=== PATIENT | male | born 1935 | race Caucasian/White ===

== ENCOUNTER 2018-07-28 15:37 | Inpatient (IN) | payer OTHER ==
[~2018-07-28] VITALS: Ht 167.6 cm; Wt 53.5 kg
[2018-07-28] VITALS (25 sets, daily range): BP systolic 81–149; BP diastolic 32–110
[2018-07-28] MEDS: methylPREDNISolone SS 40 MG/ML VIAL IVP SCH (00:18)
--- NOTE | 2018-07-28 15:37 | NUR ---
PATIENT BIB ALS TO ER BED 5.
--- NOTE | 2018-07-28 15:38 | NUR ---
MELI DOMÍNGUEZ MADE AWARE OF PT STATUS.
[2018-07-28] MEDS ORDERED: NACL 0.9% 2,000 ML IV SCH ×2 (15:55→19:09)
[2018-07-28] MEDS ORDERED: methylPREDNISolone SS 125 MG/2 ML VIAL IVP ONE ×2 (15:55→16:20)
[2018-07-28] MEDS ORDERED: LORazepam 2 MG/ML VIAL IVP ONE (15:55)
[2018-07-28] MEDS ORDERED: MAG SULF 2000 MG/WATER PREMIX 50 ML IV ONE (15:55)
[2018-07-28] MEDS ORDERED: diphenhydrAMINE 50 MG/ML VIAL IVP ONE (15:55)
[2018-07-28] MEDS ORDERED: NACL 0.9% 1,000 ML IV ONE (15:55)
[2018-07-28] MEDS ORDERED: FAMOTIDINE 20 MG/2 ML VIAL IVP ONE (15:55)
--- NOTE | 2018-07-28 16:02 | NUR ---
DR. SEBASTIAN EVALUATING PATIENT AT BEDSIDE.
[2018-07-28] MEDS ORDERED: ADENOSINE 6 MG/2 ML VIAL IVP ONE ×2 (16:05→16:10)
--- NOTE | 2018-07-28 16:13 | NUR ---
PT CAME WITH CPAP. PUT ON BIPAP. SETTINGS AGREED BY MD CHARTED. BLOOD GAS DONE AND GIVEN TO MD. PT IS RESTLESS. MD AND RN AT BEDSIDE. WILL CONTINUE TO MONIOTR.
[2018-07-28] MEDS ORDERED: DILTIAZEM 25 MG/5 ML VIAL IVP ONE ×2 (16:15)
[2018-07-28] MEDS ORDERED: methylPREDNISolone SS 125 MG/2 ML VIAL ONE (16:31)
--- NOTE | 2018-07-28 16:38 | NUR ---
NEW MAG RATE 80 ML/HR PER
--- NOTE | 2018-07-28 16:45 | NUR ---
received report from jessie saldivar. pt does not open eyes, reposned to pain stimuli. unable to follow commands. on cpap, o2 sats 98%, respiration rate fast. bedside monitor shows st 120s. body warm to touch, multiple old brusies noted.
[2018-07-28 16:55] LABS: BASOPHILS % (AUTO) 0.3 % (0.0-2.0); EOSINOPHILS % (AUTO) 0.1 % (0.0-4.0); HEMATOCRIT 35.9 % (36-52); HEMOGLOBIN 11.5 g/dL (12.0-18.0); LYMPHOCYTES % (AUTO) 6.6 % (20.5-51.1); MEAN CORPUSCULAR HEMOGLOBIN 28 pg (27-31); MEAN CORPUSCULAR HGB CONC 32 g/dL (33-37); MEAN CORPUSCULAR VOLUME 86.4 fL (80-94); MONOCYTES # (AUTO) 2.9 K/uL (0.8-1.0); MONOCYTES % (AUTO) 18.7 % (1.7-9.3); NEUTROPHILS # (AUTO) 11.5 K/uL (1.8-7.7); NEUTROPHILS % (AUTO) 74.3 % (42.2-75.2); PLATELET COUNT (AUTO) 275 K/uL (140-450); RED BLOOD CELL COUNT(AUTO) 4.16 MIL/uL (4.20-6.10); WHITE BLOOD COUNT (AUTO) 15.4 K/uL (4.8-10.8)
[2018-07-28] MEDS ORDERED: CLINDAMYCIN 900 MG in DEXTROSE 5% 100 ML IV ONE (16:55)
[2018-07-28] MEDS ORDERED: LEVOFLOXACIN 500 MG/D5W PREMIX 100 ML IV ONE (16:55)
[2018-07-28 17:10] LABS: ALBUMIN 3.1 g/dL (3.4-5.0); ANION GAP 17.7 (8-16); ASPARTATE AMINOTRANSFERASE 23 U/L (15-37); CHLORIDE 107 mmol/L (98-107); CREATININE 1.3 mg/dL (0.7-1.3); GLUCOSE 137 mg/dL (74-106); MAGNESIUM 1.4 mg/dL (1.8-2.4); POTASSIUM 3.7 mmol/L (3.5-5.1); SODIUM SERUM 143 mmol/L (136-145); TOTAL BILIRUBIN 0.5 mg/dL (0.0-1.0); UREA NITROGEN, BLOOD 13 mg/dL (7-18)
--- NOTE | 2018-07-28 17:15 | NUR ---
dr. luevano made aware of bp 88/31. will reassess patient.patient stated 3liters nss total to be infused. ivan primary nurse made aware. patienttolerating bipap.
[2018-07-28] MEDS ORDERED: CLINDAMYCIN 900 MG/6 ML VIAL IV ONE (17:17)
--- NOTE | 2018-07-28 17:18 | NUR ---
HANGED THE THIRED L OF 0.9 NS ORDERED BY .
--- NOTE | 2018-07-28 17:20 | NUR ---
DR. SEBASTIAN TALKING TO FAMILY AT BEDSIDE
[2018-07-28 17:24] LABS: PROTHROMBIN TIME 12.1 secs (10.8-13.4)
--- NOTE | 2018-07-28 17:25 | NUR ---
PT'S TWO DAUGHTERAS ST BEDSIDE. 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
[2018-07-28 17:28] LABS: ACETONE, SERUM NEGATIVE (NEGATIVE)
--- NOTE | 2018-07-28 17:35 | NUR ---
CURRENT BP 96/39, HR 97, O2 SATS 100%, RR 24 . PT STILL UNRESPONSIVE TO VERBAL STIMULI AND LIGHT PAIN STIMULI. PT'S DAUGHTER AT BEDSIDE.
[2018-07-28 17:40] LABS: BILIRUBIN,URINE NEGATIVE (NEGATIVE); BLOOD, URINE 1+ (NEGATIVE); COLOR,URINE YELLOW (YELLOW); LEUKOCYTE ESTERASE ,URINE NEGATIVE (NEGATIVE); NITRITE, URINE NEGATIVE (NEGATIVE); UGLUCOSE NEGATIVE (NEGATIVE)
[2018-07-28 17:46] LABS: APPEARANCE,URINE HAZY (CLEAR); RBC,URINE 11-20 (MOD) /HPF (0-5); WBC,URINE 0-5 /HPF (0-5)
[2018-07-28] MEDS ORDERED: ACETAMINOPHEN 325 MG TAB PO PRN (18:30)
[2018-07-28] MEDS ORDERED: HYDROcodone/APAP 5/325 MG 1 TAB TAB PO PRN (18:30)
[2018-07-28] MEDS ORDERED: ONDANSETRON 4 MG/2 ML VIAL IVP PRN (18:30)
--- NOTE | 2018-07-28 18:50 | NUR ---
RECEIVED PT FROM TEACHING AIDE CAROL. PT IS AWAKE, LETHARGIC. DOES NOT RESPOND TO COMMANDS. TEMP 97.4, ZSO=574/37, RY=920, SATING 90%, RR=29. LUNG SOUNDS CLEAR, DIMINISHED ON RIGHT SIDE.RT AT BEDSIDE, PT ON NASAL CANNULA 9LPM/ BOWEL SOUND ACTIVE, SR ON HOUSEKEEPING SUPERVISOR HOTEL. RIVERA CATH IN PLACE, PLACED IN ED, MINIMAL URINE OUTPUT, URINE IS CLEAR/YELLOW. SKIN IS NON-INTACT, BRUISING ON BILATERAL ARMS. HOB ELEVATED ABOVE 30 DEG. STANDARD ISOLATION. PER TEACHING AIDE, PT IS LEGALLY BLIND IN BOTH EYES. FULL CODE, ALLERGIES TO PENICILLIN, SULFA METHOXAZOLE, AND TRIMETHOPRIM GIVE PER RN REPORT.
--- NOTE | 2018-07-28 18:55 | NUR ---
TRANSFRRED PT TO ICU BED 5 BY ANGELIA, PT IS MORE AWAKE AT THIS TIME. BP 100/37, O2 SATS 95%, HR 100. REPORT GIVEN TO DAMIEN LEIJA.
[2018-07-28] MEDS: NACL 0.9% 1,000 ML IV SCH (19:03)
[2018-07-28] MEDS ORDERED: NACL 0.9% 1,000 ML IV SCH (19:09)
[2018-07-28] MEDS: ALBUTEROL 0.083% 2.5 MG/3 ML NEBU IH PRN (19:21)
--- NOTE | 2018-07-28 19:25 | NUR ---
RT ABADI AT BEDSIDE PT STARTED ON BIPAP, 16/8, A1=140%. RR=12.
--- NOTE | 2018-07-28 19:47 | NUR ---
CALLED DR. RIDLEY, UPDATED ON PT CONDITION. GAVE TELEPHONE ORDER TO BOLUS 100ML NS AND START LEVOPHED.
[2018-07-28] MEDS ORDERED: NOREPINEPHRINE 4 MG/4 ML VIAL IV ONE (19:58)
[2018-07-28] MEDS: NOREPINEPHRINE 4 MG in DEXTROSE 5% 250 ML IV PRN (20:06)
--- NOTE | 2018-07-28 20:15 | NUR ---
PT DAUGHTER ABRAN AT BEDSIDE
--- NOTE | 2018-07-28 21:25 | NUR ---
BIPAP CHANGES MADE BY DR. RIDLEY-BIPAP +21/09 AND DECREASE FIO2 TO 70%. MAINTAIN SAO2 GREATER THAN 92%
--- NOTE | 2018-07-28 21:30 | NUR ---
SEEN AND EXAMINED BY KEYANA, WITH NEW ORDER TO INCREASE THE ON GOING IVF NORMAL SALINE FROM 100ML/HR TO 150 ML/HR; CARRIED OUT.
--- NOTE | 2018-07-28 21:35 | NUR ---
DR RIDLEY IN TO SEE PATIENT
--- NOTE | 2018-07-28 21:45 | NUR ---
PER DR. RIDLEY, OKAY TO GIVE ZOSYN EVEN PATIENT IS ALLERGIC TO PENICILLIN.
[2018-07-28] MEDS ORDERED: MAG SULF 2000 MG/WATER PREMIX 50 ML IV SCH (22:00)
[2018-07-28] MEDS ORDERED: AZITHROMYCIN 500 MG INJ VIAL IV ONE (22:15)
[2018-07-28] MEDS: AZITHROMYCIN 500 MG in DEXTROSE 5% 250 ML IV SCH (22:24)
--- NOTE | 2018-07-28 22:30 | NUR ---
JEFFERSON FROM [facility] CALLED UPDATED ON CONDITION, PHONE# [phone].
[2018-07-28] MEDS: LORazepam 2 MG/ML VIAL IVP PRN (23:21)
--- NOTE | 2018-07-28 23:27 | NUR ---
ATIVAN GIVEN, MILD AGITATION, RR= 34-38, HR = 111, BP 105/53
[2018-07-29] VITALS (54 sets, daily range): BP systolic 78–182; BP diastolic 43–77
[2018-07-29] MEDS: methylPREDNISolone SS 40 MG/ML VIAL IVP SCH ×5 (00:18→20:51)
--- NOTE | 2018-07-29 00:18 | NUR ---
CALLED PHARM REGARDING 2199 SOLUMEDROL NOT GIVEN, TO BE GIVEN NOW AT THIS TIME. LAB AT BEDSIDE TO COLLECT SAMPLE, PT MORE AGITATED AT THIS TIME DUE TO BLOOD DRAW. FAMILY AT BEDSIDE. ON LEVOPHED 8MCG/MIN BP 103/52, SATING 91%, RN=[id number], RR=36-38.
[2018-07-29] MEDS ORDERED: methylPREDNISolone SS 40 MG/ML VIAL ONE (00:31)
[2018-07-29 01:14] LABS: CREATINE KINASE MB 3.6 ng/mL (0-3.6)
--- NOTE | 2018-07-29 01:30 | NUR ---
DR. COATES CALLED TO EVALUATE PATIENT FOR INTUBATION AND SPEAK TO FAMILY. FAMILY AND DR. COATES AGREED TO TRY MORPHINE AND FENTANYL FIRST TO SLOW HIS RESPIRATIONS AND ABG TO FOLLOW. THEN WILL SEE IF PATIENT NEEDS INTUBATION
[2018-07-29] MEDS ORDERED: MORPHINE SULFATE 4 MG/ML SYR IVP STA (01:42)
[2018-07-29] MEDS: NACL 0.9% 1,000 ML IV SCH ×4 (02:03→22:11)
--- NOTE | 2018-07-29 02:13 | NUR ---
RT GEORGES AT BEDSIDE TO COLLECT ABG.
--- NOTE | 2018-07-29 02:36 | NUR ---
G COLLETTED AND RESULTS GIVEN TO DR. COATES, INCREASED FIO2 TO 80% AND DR. COATES STATED TO MONITOR PATIENT AND IF NEED, WILL INTUBATE. RR-27, HR 91, SAO2-96%
[2018-07-29] MEDS: NOREPINEPHRINE 4 MG in DEXTROSE 5% 250 ML IV PRN (03:10)
[2018-07-29] MEDS ORDERED: NOREPINEPHRINE 4 MG/4 ML VIAL IV ONE (03:12)
[2018-07-29] MEDS ORDERED: PIPERACILLIN/TAZOBACTAM 3.375 GM VIAL IV ONE (05:41)
[2018-07-29] MEDS: PIPER/TAZO 3.375GM/D5W PREMIX 50 ML IV SCH ×4 (06:16→23:59)
[2018-07-29] MEDS: PANTOPRAZOLE 40 MG INJ VIAL IVP SCH (06:18)
[2018-07-29 06:40] LABS: ALBUMIN 2.2 g/dL (3.4-5.0); ANION GAP 15.8 (8-16); ASPARTATE AMINOTRANSFERASE 25 U/L (15-37); CHLORIDE 110 mmol/L (98-107); CREATININE 1.3 mg/dL (0.7-1.3); GLUCOSE 165 mg/dL (74-106); MAGNESIUM 2.1 mg/dL (1.8-2.4); POTASSIUM 3.8 mmol/L (3.5-5.1); SODIUM SERUM 141 mmol/L (136-145); TOTAL BILIRUBIN 0.3 mg/dL (0.0-1.0); UREA NITROGEN, BLOOD 20 mg/dL (7-18)
--- NOTE | 2018-07-29 07:13 | NUR ---
RECEIVED BEDSIDE REPORT FROM SENIOR MEDIA BUYER RN, DAMIEN, FOR CONTINUITY OF CARE. PATIENT IS RESTLESS, ABLE TO FOLLOW SIMPLE COMMANDS AND MAKE SOME NEEDS KNOWN. PATIENT SKIN IS WARM, DRY, INTACT WITH BRUISING TO UPPER EXTREMITIES. HE HAS PERIPHERAL IV SITE TO MAHAMED AND RAC, 20 GAUGE, ASYMPTOMATIC AND PATENT. PATIENT IS AFEBRILE, ON BIPAP AT 60% FIO2, BREATHING IS LABORED AND EVEN. PATIENT IS TACHYCARDIC ON LEAD AUDITOR. PER SENIOR MEDIA BUYER RN, WILL ADMINISTER ATIVAN. PATIENT HAS RIVERA CATHETER IN PLACE TO CLEAR YELLOW URINE. SAFETY PRECAUTIONS AND ALARMS ASSESS AND ENFORCED, HOB IS SEMI-MCGREGOR. WILL CONTINUE TO MONITOR PATIENT.
[2018-07-29 07:22] LABS: HEMOGLOBIN 9.9 g/dL (12.0-18.0); MEAN CORPUSCULAR HEMOGLOBIN 27 pg (27-31); MEAN CORPUSCULAR HGB CONC 31 g/dL (33-37); MEAN CORPUSCULAR VOLUME 87.8 fL (80-94); PLATELET COUNT (AUTO) 228 K/uL (140-450); RED BLOOD CELL COUNT(AUTO) 3.64 MIL/uL (4.20-6.10); RED CELL DISTRIBUTION WIDTH 20.9 % (11.6-13.7)
[2018-07-29] MEDS: LORazepam 2 MG/ML VIAL IVP PRN ×2 (07:34→20:51)
[2018-07-29 07:36] LABS: LYMPHOCYTES % (MANUAL) 3 % (20-46); METAMYELOCYTES % 2 % (0-0); MONOCYTES % (MANUAL) 10 % (5-12)
--- NOTE | 2018-07-29 07:43 | NUR ---
PT RESTLESS. RN GIVEN ATIVAN AT BEDSIDE. RN PAGED MD FERRO WAITING FOR CALL BACK. AMBU BAG AT BEDSIDE. BIPAP CONNECTED TO RED OUTLET.ALARMS AUDIBLE WILL CONTINUE TO MONITOR.
--- NOTE | 2018-07-29 07:45 | NUR ---
CALLED DR. FERRO, UPDATED ON PATIENT'S CONDITION. RECEIVED ORDER FOR MORPHINE 2MG Q6H PRN.
--- NOTE | 2018-07-29 07:49 | NUR ---
PATIENT HAS BEEN SCREENED AND CATEGORIZED HIGH NUTRITION RISK. PATIENT WILL BE SEEN WITHIN 1-2 DAYS OF ADMISSION. 07/29/18-07/30/[address]
--- NOTE | 2018-07-29 08:19 | NUR ---
DR. FERRO IS HERE TO SEE AND EXAMINE PATIENT, UPDATED ON PATIENT'S CONDITION. WILL FOLLOW UP ON ANY ORDERS
[2018-07-29] MEDS: ENOXAPARIN 40 MG/0.4 ML SYR SUBQ SCH (09:17)
--- NOTE | 2018-07-29 09:50 | NUR ---
PATIENT IS OFF LEVOPHED DRIP, BP IS 119/56, NO SIGNS OF DISTRESS AT THIS TIME
--- NOTE | 2018-07-29 10:02 | NUR ---
BP IS 110/59, HR 98, SPO2 97, RR 26, DENIES ANY PAIN AT THIS TIME. DAUGHTER AT BEDSIDE. NO SIGNS OF ACUTE DISTRESS.
--- NOTE | 2018-07-29 10:04 | NUR ---
07/29/18 RD INITIAL ASSESSMENT COMPLETED PLEASE REFER TO NUTRITION ASSESSMENT UNDER CARE ACTIVITY FOR ESTIMATED NUTRITIONAL NEEDS. 1. RECOMMEND NPO 2. WHEN PATIENT BECOMES MEDICALLY STABLE CONSIDER ADVANCING DIET TO CARDIAC 3. IF PATIENT IS INTUBATED, CONSIDER ENTERAL NUTRITION 4. RD TO FOLLOW-UP 2-3 DAYS, HIGH RISK CRISTIAN CASEY RD
[2018-07-29 10:55] LABS: CREATINE KINASE MB 5.4 ng/mL (0-3.6)
--- NOTE | 2018-07-29 11:10 | NUR ---
PT DOING MUCH BETTER. CALM. FAMILY AT BEDSIDE. BIPAP OFF FOR PT'S COMFORT. PT IS AWAKE. RN AND FAMILY AT BEDSIDE. PER PT'S DAUGHTER TISHA TO GIVE PT BREAK FROM MASK IF TOLERATED. PT OFF BIPAP. PLACED ON 3 L NC. SPO2 92% HR 105 BP 120/55. NO DISTRESS NOTED. WILL CONTINUE TO MONITOR.
--- NOTE | 2018-07-29 11:19 | NUR ---
JARRETT COTTON AT BEDSIDE. REMOVED PATIENT'S PARTIAL UPPER DENTURES, PATIENT TOLERATED WELL. Addendum: 07/29/18 at 1743 by Glen Rodriguez RN PATIENT'S DENTURES ARE WITH PATIENT'S DAUGHTER
--- NOTE | 2018-07-29 11:28 | NUR ---
PATIENT IS OFF BIPAP, PLACED ON NASAL CANNULA 3LPM. SPO2 IS 91%
--- NOTE | 2018-07-29 13:01 | NUR ---
VSS AT THIS TIME, PATIENT'S FAMILY AT BEDSIDE.
--- NOTE | 2018-07-29 14:39 | NUR ---
DR. HATFIELD AT BEDSIDE TO EXAMINE PATIENT
[2018-07-29] MEDS: ALBUTEROL 0.083% 2.5 MG/3 ML NEBU IH PRN ×2 (18:44→23:16)
--- NOTE | 2018-07-29 19:05 | NUR ---
CONTINUITY OF CARE ENDORSED TO PULLER THROUGH RNKEVIN. NO SIGNS OF DISTRESS NOTED
--- NOTE | 2018-07-29 19:20 | NUR ---
BSSR RECEIVED FROM HELADIO TRIPATHI. PT COMFORTABLE, CONFUSED, ABLE TO FOLLOW COMMANDS. BREATHING NORMALLY ON NC AT 4L O2. SINUS TACH ON THE MONITOR. ABDOMEN SOFT AND NON TENDER TO TOUCH. RIVERA CATHETER INTACT AND DRAINING YELLOW CLEAR URINE. MULTIPLE DISCOLORATIONS TO BILATERAL ARMS. NO ACUTE DISTRESS AT THIS TIME, WILL CONTINUE TO MONITOR CLOSELY.
[2018-07-29] MEDS: AZITHROMYCIN 500 MG in DEXTROSE 5% 250 ML IV SCH (20:57)
[2018-07-29] MEDS: MORPHINE SULFATE 2 MG/ML SYR IVP PRN (21:23)
--- NOTE | 2018-07-29 21:30 | NUR ---
DATA: PT AGITATED AT 2044 ACTION:ATIVAN 2MG IVP GIVEN AT 2050 REASSESSMENT:INTERMITTENT AGITATION OBSERVED AT 2129
--- NOTE | 2018-07-29 22:00 | NUR ---
DATA: PAIN 7/10 (FLACC) AT 2114 ACTION:MORPHINE SULFATE 2MG IVP GIVEN AT 2122 REASSESSMENT:PT ASLEEP 0/10 PAIN AT THIS ( 2199) TIME
[2018-07-29] MEDS ORDERED: ACETYLCYSTEINE 10% (100 MG/ML) 100 MG/ML VIAL INH PRN (22:45)
--- NOTE | 2018-07-29 22:48 | NUR ---
PATIENT HAS AUDIBLE SECRETIONS AND CONGESTION. NTS PATIENT DOWN BOTH LEFT AND RIGHT NARES WITH NO INCIDENT. RECEIVED SMALL, WHITE, THIN SECRETIONS. DUE TO PATIENTS ALOC HE IS UNABLE TO FOLLOW COMMANDS TO COUGH WHEN SUCTIONED. ASKED RN TO CALL DOCTOR AND REQUEST MUCOMYST 20%.
--- NOTE | 2018-07-29 22:53 | NUR ---
PT HAS RONCHI AND NOT ABLE TO COUGH UP HIS SECRETION, CALLED DR. DASH, ORDER RECEIVED AND WILL FOLLOW IT. RT PERFORMED NASAL SUCTIONING WELL.
[2018-07-29] MEDS ORDERED: ACETYLCYSTEINE 20% (200 MG/ML) 200 MG/ML VIAL ONE (22:57)
--- NOTE | 2018-07-29 23:40 | NUR ---
PLACED PATIENT ONTO OXYMIZER AT 6L/M, WAS PREVIOUSLY ON NASAL CANNULA AT 4L/M BUT PT SATURATION MAINTAINED AT 89%.
[2018-07-30] VITALS (9 sets, daily range): BP systolic 101–150; BP diastolic 45–73
[2018-07-30] MEDS: LORazepam 2 MG/ML VIAL IVP PRN ×3 (01:43→20:25)
--- NOTE | 2018-07-30 02:03 | NUR ---
DATA: PT AGITATED AT 0135 ACTION:ATIVAN 2MG IVP GIVEN AT 0143 REASSESSMENT:PT ASLEEP AT THIS (0203)
--- NOTE | 2018-07-30 02:30 | NUR ---
PATIENT IS RESTLESS, TACHYAPNEIC WHENEVER HE'S AWAKE AND NOTEDD WITH CRACKLES HEARD ALL OVER THE CHEST; PAGE DR. DASH TO REFER THE PATIENT; PAGED 3X BUT HE DIDN'T ANSWER MY PAGE. CLOSE OBSERVATION OF PATIENT DONE.
[2018-07-30] MEDS ORDERED: ACETYLCYSTEINE 20% (200 MG/ML) 200 MG/ML VIAL ONE (03:22)
[2018-07-30] MEDS: ALBUTEROL 0.083% 2.5 MG/3 ML NEBU IH PRN ×4 (03:34→19:48)
--- NOTE | 2018-07-30 04:30 | NUR ---
STILL NO RETURNED CALL FROM DR. DASH SO PAGED DR. GREGORIO (POST ANESTHESIA NURSE FOR DR. ALEGRE) AND PAGED AGAIN DR. DASH TOO. THEY CALLED BACK SIMULTANEOUSLY AT 0625 HRS. AND GOT NEW ORDERS FROM DR. GREGORIO TO DICONTINUE THE ONGOING IV FLUID AND TO GIVE LASIX 20 MG IF X 1; CARRIED OUT
[2018-07-30] MEDS: NACL 0.9% 1,000 ML IV SCH (05:18)
[2018-07-30] MEDS: methylPREDNISolone SS 40 MG/ML VIAL IVP SCH ×3 (05:18→20:25)
[2018-07-30] MEDS: PIPER/TAZO 3.375GM/D5W PREMIX 50 ML IV SCH ×3 (05:18→18:46)
[2018-07-30] MEDS: PANTOPRAZOLE 40 MG INJ VIAL IVP SCH (05:34)
[2018-07-30 05:51] LABS: ALBUMIN 2.1 g/dL (3.4-5.0); ANION GAP 16.3 (8-16); ASPARTATE AMINOTRANSFERASE 29 U/L (15-37); CARBON DIOXIDE 18.4 mmol/L (21-32); CHLORIDE 112 mmol/L (98-107); CREATININE 1.1 mg/dL (0.7-1.3); GLUCOSE 128 mg/dL (74-106); POTASSIUM 3.7 mmol/L (3.5-5.1); SODIUM SERUM 143 mmol/L (136-145); TOTAL BILIRUBIN 0.3 mg/dL (0.0-1.0); UREA NITROGEN, BLOOD 23 mg/dL (7-18)
[2018-07-30] MEDS ORDERED: FUROSEMIDE 40 MG/4 ML VIAL IVP SCH (06:15)
[2018-07-30 06:26] LABS: HEMATOCRIT 24.7 % (36-52); HEMOGLOBIN 7.8 g/dL (12.0-18.0); MEAN CORPUSCULAR HEMOGLOBIN 27 pg (27-31); MEAN CORPUSCULAR HGB CONC 31 g/dL (33-37); MEAN CORPUSCULAR VOLUME 86.6 fL (80-94); PLATELET COUNT (AUTO) 118 K/uL (140-450); RED BLOOD CELL COUNT(AUTO) 2.85 MIL/uL (4.20-6.10)
[2018-07-30] MEDS ORDERED: FUROSEMIDE 40 MG/4 ML VIAL IVP ONE (06:27)
--- NOTE | 2018-07-30 07:30 | NUR ---
RECEIVED BEDSIDE REPORT FROM PIPE PRODUCTION WORKER RN. PT IS CONFUSED, DOES NOT FOLLOW COMMANDS AT THIS TIME. AFEBRILE. SINUS TACHY ON MONITOR. PT IS ON OXYMIZER AT 6 LPM. CRACKLES AUSCULTATED BILATERALLY. BREATHING EVEN, UNLABORED. ABDOMEN FLAT, SOFT, NONTENDER W/ ACTIVE BOWEL SOUNDS. SALINE LOCK G20 TO RIGHT WRIST PATENT, INTACT W/ GOOD BLOOD RETURN. SALINE FLUSHED. RIVERA CATH IN PLACE, DRAINING LIGHT NOEL TO GRAVITY. NO EDEMA NOTED. SKIN IS INTACT, DRY AND WARM TO TOUCH. PULSES PALPABLE TO ALL EXTREMITIES. HOB 30 DEGREES, BED IN LOWEST POSITION LOCKED, CALL LIGHT WITHIN REACH. ALL SAFETY PRECAUTIONS IN PLACE. WILL CONTINUE TO MONITOR.
[2018-07-30 07:36] LABS: WHITE BLOOD COUNT (AUTO) 31.5 K/uL (4.8-10.8)
[2018-07-30 07:37] LABS: LYMPHOCYTES % (MANUAL) 2 % (20-46); MONOCYTES % (MANUAL) 3 % (5-12)
[2018-07-30] MEDS: MORPHINE SULFATE 2 MG/ML SYR IVP PRN (07:41)
[2018-07-30] MEDS: ENOXAPARIN 40 MG/0.4 ML SYR SUBQ SCH (08:05)
--- NOTE | 2018-07-30 08:30 | NUR ---
MEDICATIONS ADMINISTERED ORDERED. PT TOLERATED WELL.
--- NOTE | 2018-07-30 09:10 | NUR ---
DAUGHTERS AT BEDSIDE. PT IS ANXIOUS AND RESTLESS, TRYING TO GET UP FROM BED. ATIVAN GIVEN ORDERED. WILL CONTINUE TO MONITOR.
--- NOTE | 2018-07-30 09:30 | NUR ---
PT SEEN BY DR. HATFIELD. WILL FOLLOW UP ON ORDERS. Addendum: 07/30/18 at 1332 by Jordana Daniels RN DR. HATFIELD AWARE OF HGB LEVEL OF 7.8.
--- NOTE | 2018-07-30 11:01 | NUR ---
PT IS CALM AND SLEEPING AT THIS TIME. DAUGHTER AT BEDSIDE. VSS. SAFETY PRECAUTIONS IN PLACE. WILL CONTINUE TO MONITOR.
--- NOTE | 2018-07-30 12:15 | NUR ---
SPEECH THERAPIST AT BEDSIDE, SWALLOW EVAL BEING DONE, WILL FOLLOW UP ON DIET RECOMMENDATION.
--- NOTE | 2018-07-30 12:29 | NUR ---
S.T. BEDSIDE SWALLOW EVAL COMPLETED See report for details. Pt presents with mild oropharyngeal dysphagia c/b prolonged oral prep, delayed pharyngeal swallow initiation and diffuse oral residue of puree after swallows. Pt able to clear most of residue w/ subsequent sips of thin liquid. Pt is at mod risk for aspiration. Recommend: 1) Advance to pureed diet, thin liquids okay. 2) P.O. meds crushed 3) 1:1 feeder w/ aspiration precautions 4) Advance to mechanical soft diet slowly only if family brings in upper denture from home. D/w pt, daughter and ICU nsg at bedside results/recommendations. No further tx indicated at this time. DC to nsg care. Time: [id number]
--- NOTE | 2018-07-30 13:11 | NUR ---
CHEST X-RAY BEING DONE AT BEDSIDE. PT'S VITAL SIGNS ARE STABLE. NO SIGNS OF DISTRESS NOTED.
[2018-07-30] MEDS ORDERED: ACETYLCYSTEINE 20% (200 MG/ML) 200 MG/ML VIAL INH PRN (13:43)
--- NOTE | 2018-07-30 15:22 | NUR ---
PT SEEN AND EXAMINED BY DR. FERRO. WILL FOLLOW UP ON ORDERS.
--- NOTE | 2018-07-30 15:25 | NUR ---
DR. FERRO MADE AWARE OF OCCASIONAL PAC'S AND PVC'S ON CITY DISTRIBUTION CLERK. NO NEW ORDER AT THIS TIME.
--- NOTE | 2018-07-30 17:45 | NUR ---
PT TRANSFERRED TO TELEMETRY ROOM 107A. REPORT GIVEN TO HELADIO WOODARD AT BEDSIDE, ENDORSED PENDING BLOOD TRANSFUSION. PT IS IN STABLE CONDITION. FAMILY AT BEDSIDE.
--- NOTE | 2018-07-30 17:46 | NUR ---
RECEIVED BEDSIDE REPORT FROM IAN WIRE BASKET MAKER. PATIENT ON TELE MONITOR AND STANDARD PRECAUTIONS IN PLACE. PATIENT CONFUSED, SKIN INTACT, PRESENCE OF BRUISES. ON 5 L O2 VIA OXIMIZER, NO DISTRESS NOTED. IV ON R WRIST 20 G INFUSING ZOSYN, TKO, IV ASYMPTOMATIC PATENT AND INTACT. FALL RISK PROTOCOL IN PLACE. BED IN LOW POSITION, CALL LIGHT WITHIN REACH, SIDE RAILS X2 UP. DAUGHTER AND AT BEDSIDE. WILL CONTINUE TO MONITOR.
--- NOTE | 2018-07-30 19:20 | NUR ---
BEDSIDE REPORT GIVEN TO HELADIO GARCIA. PATIENT ENDORSED IN STABLE CONDITION.
--- NOTE | 2018-07-30 19:30 | NUR ---
RECEIVED BEDSIDE REPORT FROM DAY SHIFT RN, PATIENT IN BED, ON 5 L VIA OXYMIZER, FAMILY AT BEDSIDE QUESTIONS ANSWERED. V/S TAKEN. FAMILY REQUESTED PATIENT BE MEDICATED WITH ATIVAN FOR ANXIETY. IV IN RIGHT WRIST 20 G DRESSING INTACT.
[2018-07-30] MEDS: AZITHROMYCIN 500 MG in DEXTROSE 5% 250 ML IV SCH (20:25)
--- NOTE | 2018-07-30 20:35 | NUR ---
DUE MEDICATIONS GIVEN, PATIENT LOOKS ANXIOUS MOVING IN BED, TRYING TO GET OUT, MEDICATED WITH ATIVAN FOR ANXIETY.
--- NOTE | 2018-07-30 23:45 | NUR ---
CHARGE NURSE NICHOLAS ASKED TO CALL RT FOR BREATHING TREATMENT. CALLED RT, BETTINA ON HIS WAY
[2018-07-31] VITALS: BP 112/60
--- NOTE | 2018-07-31 | NUR ---
V/S TAKEN WILL CONTINUE TO MONITOR.
[2018-07-31] MEDS: PIPER/TAZO 3.375GM/D5W PREMIX 50 ML IV SCH ×5 (00:59→23:46)
--- NOTE | 2018-07-31 03:17 | NUR ---
ASLEEP RESTING COMFORTABLE GOOD CHEST RISE NO SOB NOTED
[2018-07-31 04:00] VITALS: BP 135/75
--- NOTE | 2018-07-31 04:00 | NUR ---
PATIENT RESTING IN BED, V/S TAKEN WILL CONTINUE TO MONITOR.
--- NOTE | 2018-07-31 05:12 | NUR ---
RECRUITING AND SELECTION CONSULTANT CALLED TO BEDSIDE TO ASSESS FOR SOB PATIENT PRESENTING WITH INCREASED AGITATION AND ANXIETY FAMILY AT BEDSIDE REQUESTING HHN PRN THERAPY EXPLAINED TO FAMILY THAT A HHN THERAY WILL NOT DECREASE THE PATIENTS STATE OF AGITATION AND ANXIETY POST THERAPY PATIENT REMAINS WITH THE SAME FOREMENTIONED STATUS
[2018-07-31] MEDS: ALBUTEROL 0.083% 2.5 MG/3 ML NEBU IH PRN ×2 (05:17→19:33)
[2018-07-31] MEDS: LORazepam 2 MG/ML VIAL IVP PRN ×3 (05:29→20:49)
[2018-07-31] MEDS: methylPREDNISolone SS 40 MG/ML VIAL IVP SCH (05:29)
[2018-07-31] MEDS: PANTOPRAZOLE 40 MG INJ VIAL IVP SCH (05:30)
--- NOTE | 2018-07-31 05:45 | NUR ---
PATIENT LOOKS ANXIOUS GAVE ATIVAN
--- NOTE | 2018-07-31 06:33 | NUR ---
STARTED BLOOD WITH HELADIO HANNAH V/Kristy STABLE
[2018-07-31 07:14] LABS: BASOPHILS # (AUTO) 0.2 K/uL (0.00-0.22); BASOPHILS % (AUTO) 0.6 % (0.0-2.0); HEMATOCRIT 26.5 % (36-52); HEMOGLOBIN 8.7 g/dL (12.0-18.0); LYMPHOCYTES # (AUTO) 0.3 K/uL (2.0-11.5); LYMPHOCYTES % (AUTO) 1.1 % (20.5-51.1); MEAN CORPUSCULAR HEMOGLOBIN 28 pg (27-31); MEAN CORPUSCULAR HGB CONC 33 g/dL (33-37); MEAN CORPUSCULAR VOLUME 85.7 fL (80-94); MONOCYTES # (AUTO) 0.9 K/uL (0.8-1.0); MONOCYTES % (AUTO) 3.7 % (1.7-9.3); NEUTROPHILS # (AUTO) 23.2 K/uL (1.8-7.7); NEUTROPHILS % (AUTO) 94.6 % (42.2-75.2); PLATELET COUNT (AUTO) 119 K/uL (140-450); RED CELL DISTRIBUTION WIDTH 21.3 % (11.6-13.7); WHITE BLOOD COUNT (AUTO) 24.6 K/uL (4.8-10.8)
--- NOTE | 2018-07-31 07:28 | NUR ---
ENDORSED PATIENT TO DAY SHIFT NURSE, BLOOD STILL INFUSING, V/S STABLE.
--- NOTE | 2018-07-31 07:30 | NUR ---
GOT BEDSIDE REPORT FROM HELADIO GARCIA. PATIENT ON TELE MONITOR AND STANDARD PRECAUTIONS IN PLACE. BLOOD INFUSING AT THIS TIME. PATIENT SLEEPING AND IV SITE ASYMPTOMATIC, PATENT AND INTACT. PATIENT APHASIC. SKIN INTACT. FALL RISK PROTOCOL IN PLACE. OXIMIZER AT 5 LPM, WITH NO DISTRESS NOTED. IV ON R WRIST 20 G INFUSING 1 UNIT PRBC. PATIENT CALM AND SLEEPING. DAUGHTER AT BEDSIDE. BED IN LOW POSITION, CALL LIGHT WITHIN REACH, SIDE RAILS X 2 UP. WILL CONTINUE TO MONITOR. Addendum: 07/31/18 at 0846 by Silvina Munoz RN RIVERA CATHETER IN PLACE, INSERTED ON 07/28/18.
[2018-07-31 07:43] LABS: ANION GAP 14.2 (8-16); CARBON DIOXIDE 24.4 mmol/L (21-32); CHLORIDE 111 mmol/L (98-107); CREATININE 0.9 mg/dL (0.7-1.3); GLUCOSE 129 mg/dL (74-106); SODIUM SERUM 147 mmol/L (136-145); UREA NITROGEN, BLOOD 24 mg/dL (7-18)
[2018-07-31 07:45] LABS: POTASSIUM 2.6 mmol/L (3.5-5.1)
[2018-07-31 08:00] VITALS: BP 145/69
[2018-07-31] MEDS: ENOXAPARIN 40 MG/0.4 ML SYR SUBQ SCH (09:00)
[2018-07-31] MEDS: KCL 20 MEQ/WATER INJ PREMIX 100 ML IV SCH ×2 (09:00→16:52)
--- NOTE | 2018-07-31 10:04 | NUR ---
BLOOD TRANSFUSION COMPLETE. PATIENT VITALS STABLE BP 128/60, HR 95, OS 95%, RR 18, AND T 97.7. WILL CONTINUE TO MONITOR.
[2018-07-31 12:00] VITALS: BP 120/88
--- NOTE | 2018-07-31 12:48 | NUR ---
RD RECOMMENDATIONS: 1. RECOMMEND CONTINUE WITH PUREED DIET PER ST RECOMMENDATIONS. 2.MECHANICAL SOFT DIET IF FAMILY BRINGS DENTURES FROM HOME PER ST RECOMMENDATIONS. 3. IF PO INTAKE <75%, RECOMEMND ADDING ONS. 4.RD WILL F/U 3-5 DAYS; MODERATE RISK. BRENNAN MARC RD
--- NOTE | 2018-07-31 13:00 | NUR ---
FAMILY AT BEDSIDE. PATIENT ON 2.5 LPM OXIMIZER, NO DISTRESS NOTED. WILL CONTINUE TO MONITOR.
[2018-07-31 16:00] VITALS: BP 150/91
--- NOTE | 2018-07-31 16:05 | NUR ---
PATIENT SLEEPING. NO COMPLAINTS AT THIS TIME. WILL CONTINUE TO MONITOR.
--- NOTE | 2018-07-31 19:05 | NUR ---
GAVE BEDSIDE REPORT TO HELADIO GARCIA. PATIENT ENDORSED IN STABLE CONDITION.
--- NOTE | 2018-07-31 19:30 | NUR ---
RECEIVED BEDSIDE REPORT FROM DAY SHIFT RN, PATIENT IN BED, V/S TAKEN ON 3 L VIA OXYMIZER, O2 SAT 89% CALLED RT SPOKE WITH SARMAD SHE STATED THAT IS OKAY FOR THIS PATIENT. FAMILY AT BEDSIDE QUESTIONS ANSWERED. FAMILY REQUESTED PATIENT BE MEDICATED WITH ATIVAN FOR ANXIETY. IV IN RIGHT WRIST 24 G DRESSING INTACT.
[2018-07-31] MEDS: ACETYLCYSTEINE 10% (100 MG/ML) 100 MG/ML VIAL INH PRN (19:33)
[2018-07-31 20:00] VITALS: BP 155/70
[2018-07-31] MEDS: AZITHROMYCIN 500 MG in DEXTROSE 5% 250 ML IV SCH (20:49)
--- NOTE | 2018-07-31 20:49 | NUR ---
PATIENT LOOKS ANXIOUS GAVE ATIVAN.
--- NOTE | 2018-07-31 22:45 | NUR ---
PATIENT HAS CRACKLES LOOKS ANXIOUS O2SAT 90% ON 3 L VIA OXYMIZER. CALLED RT SPOKE WITH SARMAD. TOLD ITS TOO EARLY FOR PATIENT TO HAVE BREATHING TX. EXPLAINED TO FAMILY, PLACED HOB UP. REPOSITIONED FOR COMFORT. WILL CONTINUE TO MONITOR.
--- NOTE | 2018-07-31 23:53 | NUR ---
DUE ZOSYN GIVEN, EDUCATION PROVIDED TO FAMILY.
[2018-08-01] VITALS: BP 130/80
--- NOTE | 2018-08-01 02:45 | NUR ---
PATIENT HAS NOTED CRACKLES AND SECRETIONS. CALLED RT FOR BREATHING TREATMENT.
[2018-08-01] MEDS: ALBUTEROL 0.083% 2.5 MG/3 ML NEBU IH PRN ×4 (02:50→18:42)
[2018-08-01 04:00] VITALS: BP 135/40
--- NOTE | 2018-08-01 05:00 | NUR ---
DUE MEDICATIONS GIVEN WILL CONTINUE TO MONITOR
[2018-08-01] MEDS: PIPER/TAZO 3.375GM/D5W PREMIX 50 ML IV SCH ×3 (05:56→17:45)
[2018-08-01] MEDS: PANTOPRAZOLE 40 MG INJ VIAL IVP SCH (05:56)
[2018-08-01 07:27] LABS: BASOPHILS # (AUTO) 0.1 K/uL (0.00-0.22); BASOPHILS % (AUTO) 0.4 % (0.0-2.0); EOSINOPHILS % (AUTO) 0.1 % (0.0-4.0); HEMATOCRIT 29.9 % (36-52); HEMOGLOBIN 9.8 g/dL (12.0-18.0); LYMPHOCYTES # (AUTO) 0.3 K/uL (2.0-11.5); LYMPHOCYTES % (AUTO) 1.5 % (20.5-51.1); MEAN CORPUSCULAR HEMOGLOBIN 28 pg (27-31); MEAN CORPUSCULAR HGB CONC 33 g/dL (33-37); MEAN CORPUSCULAR VOLUME 85.8 fL (80-94); MONOCYTES # (AUTO) 0.6 K/uL (0.8-1.0); MONOCYTES % (AUTO) 3.6 % (1.7-9.3); NEUTROPHILS # (AUTO) 16.9 K/uL (1.8-7.7); NEUTROPHILS % (AUTO) 94.4 % (42.2-75.2); PLATELET COUNT (AUTO) 115 K/uL (140-450); RED BLOOD CELL COUNT(AUTO) 3.48 MIL/uL (4.20-6.10); RED CELL DISTRIBUTION WIDTH 19.6 % (11.6-13.7); WHITE BLOOD COUNT (AUTO) 17.9 K/uL (4.8-10.8)
--- NOTE | 2018-08-01 07:38 | NUR ---
ENDORSED PATIENT TO DAY SHIFT NURSE PATIENT STABLE
[2018-08-01 07:55] LABS: PROTHROMBIN TIME 12.1 secs (10.8-13.4)
[2018-08-01 08:00] VITALS: BP 132/73
[2018-08-01 08:38] LABS: ALBUMIN 2.2 g/dL (3.4-5.0); ASPARTATE AMINOTRANSFERASE 27 U/L (15-37); CARBON DIOXIDE 23.6 mmol/L (21-32); CREATININE 0.7 mg/dL (0.7-1.3); GLUCOSE 113 mg/dL (74-106); TOTAL BILIRUBIN 0.7 mg/dL (0.0-1.0); UREA NITROGEN, BLOOD 22 mg/dL (7-18)
[2018-08-01] MEDS: ENOXAPARIN 40 MG/0.4 ML SYR SUBQ SCH (09:00)
[2018-08-01 09:03] LABS: ANION GAP 15.3 (8-16); CHLORIDE 111 mmol/L (98-107); SODIUM SERUM 147 mmol/L (136-145)
[2018-08-01] MEDS: ACETYLCYSTEINE 10% (100 MG/ML) 100 MG/ML VIAL INH PRN ×2 (09:08→18:42)
[2018-08-01 09:14] LABS: POTASSIUM 2.9 mmol/L (3.5-5.1)
[2018-08-01 09:18] LABS: MAGNESIUM 1.7 mg/dL (1.8-2.4); THYROID STIMULATING HORMONE 0.64 uIU/mL (0.34-3.74)
--- NOTE | 2018-08-01 09:54 | NUR ---
RECEIVED PATIENT ON 3L OXYMIZER, PULSE OX SAT 94%. BREATH SOUNDS RHONCHI. PATIENT EXPERIENCING DIFFICULTY CLEARING SECRETIONS. FAMILY AT BEDSIDE. FAMILY AGREED TO PLAN OF BREATHING TREATMENT FOLLOWED WITH NASOTRACHEAL SUCTIONING. PRN BREATHING TX ADMINISTERED. TOLERATED TX WELL, NO ADVERSE SIDE EFFECTS. NASOTRACHEAL SUCTIONED PATIENT WITHOUT INCIDENT. RN AT BEDSIDE TO ASSIST. SUCTIONED SMALL AMOUNT OF THICK, YELLOW BLOOD TINGED SECRETIONS. PLACED PATIENT BACK ON 3L OXYMIZER. DR. FERRO AT BEDSIDE. PLACED PATIENT ON 2L NC. NO ACUTE DISTRESS NOTED AT THIS TIME. WILL CONTINUE TO MONITOR.
[2018-08-01] MEDS ORDERED: POTASSIUM CHLORIDE 40 MEQ, LIDOCAINE 1% 25 MG in NACL 0.9% 250 ML IV SCH (11:30)
[2018-08-01 12:00] VITALS: BP 150/66
[2018-08-01] MEDS ORDERED: MAG SULF 2000 MG/WATER PREMIX 50 ML IV SCH (15:30)
[2018-08-01 16:00] VITALS: BP 146/75
--- NOTE | 2018-08-01 17:23 | NUR ---
PATIENT ON 2L NC, PULSE OX SAT 95%. FAMILY AT BEDSIDE. PRN BREATHING TX ADMINISTERED DUE TO WHEEZING. TOLERATED TX WELL, NO ADVERSE SIDE EFFECTS. PLACED PATIENT BACK ON 2L NC. WILL CONTINUE TO MONITOR.
[2018-08-01] MEDS ORDERED: CLOP75TA26 PO (18:58)
[2018-08-01] MEDS ORDERED: MIRT15TA PO (18:58)
[2018-08-01] MEDS ORDERED: [UNRECOGNIZED DRUG - CODE] PO (18:58)
[2018-08-01] MEDS ORDERED: [UNRECOGNIZED DRUG - CODE] PO (18:58)
[2018-08-01] MEDS ORDERED: ASPI-1718 PO (18:58)
[2018-08-01] MEDS ORDERED: HYOS-77 SL (18:58)
[2018-08-01] MEDS ORDERED: FLOR250 PO (18:58)
[2018-08-01] MEDS ORDERED: DILT-135 PO (18:58)
[2018-08-01] MEDS ORDERED: FERR324T11 PO (18:58)
[2018-08-01] MEDS ORDERED: ALBU0.0912 IH (18:58)
[2018-08-01] MEDS ORDERED: SPIMDI INH (18:58)
[2018-08-01] MEDS ORDERED: LOVA10TA2 PO (18:58)
[2018-08-01] MEDS ORDERED: FLUO10CA21 PO (18:58)
[2018-08-01] MEDS ORDERED: ATI.5 PO ×2 (18:58)
[2018-08-01] MEDS ORDERED: MELA5TAB6 PO (18:58)
[2018-08-01] MEDS ORDERED: FLUT1DSK4 IH (18:58)
[2018-08-01] MEDS ORDERED: BISA-246 RC (18:58)
[2018-08-01] MEDS ORDERED: TYL650S RC (19:00)
--- NOTE | 2018-08-01 19:26 | NUR ---
GAVE REPORT TO CIGAR TOBACCO REHANDLER NURSE FOR CONTINUITY OF CARE. PATIENT IN STABLE CONDITION.
--- NOTE | 2018-08-01 19:27 | NUR ---
RECEIVED REPORT FROM DAY SHIFT RN MICHAEL FOR CONTINUITY OF CARE. PT IS A/OX1 [place]ER SPEAKING, ON 2L O2 VIA NASAL CANNULA. PT ABLE TO MAKE SOME NEEDS KNOWN, AND ABLE TO FOLLOW SOME COMMANDS. PT BEDBOUND WITH FALL PRECAUTIONS IN PLACE. SKIN IS INTACT. PT HAS A 24G IV TO LEFT WRIST/FOREARM, ASYMPTOMATIC AND INTACT. DISCUSSED PLAN OF CARE WITH PT, PT NEEDS REINFORCEMENT. VITAL SIGNS WITHIN NORMAL LIMITS. PT STABLE, DENIES PAIN, NO SIGNS OF DISTRESS NOTED AT THIS TIME. PT POSITIONED FOR COMFORT. BED IN LOWEST POSITION, BED ALARM ON. WILL CONTINUE TO MONITOR.
[2018-08-01 20:00] VITALS: BP 155/86
[2018-08-01] MEDS: AZITHROMYCIN 500 MG in DEXTROSE 5% 250 ML IV SCH (20:52)
--- NOTE | 2018-08-01 21:00 | NUR ---
STARTED 2100 IV ABX INFUSION, PT TOLERATING WELL. WILL CALL PHARMACY TO MAKE MAGNESIUM AVAILABLE AGAIN.
--- NOTE | 2018-08-01 22:15 | NUR ---
PT PULLED OUT IV, WILL START NEW IV.
[2018-08-01] MEDS: HALOPERIDOL IM 5 MG/ML VIAL IM PRN (23:29)
--- NOTE | 2018-08-01 23:30 | NUR ---
PT AGITATED, ADMINISTERED HALDOL PER ORDER, PT TOLERATED WELL.
[2018-08-02] VITALS: BP 142/73
--- NOTE | 2018-08-02 | NUR ---
VITAL SIGNS WITHIN NORMAL LIMITS. PT STABLE, DENIES PAIN, NO SIGNS OF DISTRESS NOTED AT THIS TIME. PT POSITIONED FOR COMFORT. BED IN LOWEST POSITION, BED ALARM ON. WILL CONTINUE TO MONITOR.
[2018-08-02] MEDS: ALBUTEROL 0.083% 2.5 MG/3 ML NEBU IH PRN ×3 (00:16→14:05)
--- NOTE | 2018-08-02 00:25 | NUR ---
ATTEMPTED TO START NEW IV, BUT UNABLE TO. ASKED CHARGE NURSE TO TRY WHEN SHE IS AVAILABLE. CHARGE NURSE ABLE TO START NEW 22G IV TO LEFT HAND. ASKED PHARMACY TO RENEW MAG-RIDER, PHARMACY SAID THEY WERE UNABLE TO AND WOULD NEED NEW MD ORDER.
[2018-08-02] MEDS ORDERED: LORazepam 2 MG/ML VIAL IM/IVP SCH (00:30)
--- NOTE | 2018-08-02 00:45 | NUR ---
PT AGITATED AGAIN, TAKING VERY LABORED AND SHALLOW BREATHS, SATURATING AT 97% BUT HEART RATE BETWEEN 140-180. CALLED RT AND RT GAVE BREATHING TREATMENT BUT PT IS STILL VERY AGITATED. CALLED CUSTOMER EXPERIENCE ANALYST DR. SANDEEP VALLECILLO, HE ORDERED 0.5MG ATIVAN, CHEST XRAY, AND BLOOD GAS.
[2018-08-02] MEDS: PIPER/TAZO 3.375GM/D5W PREMIX 50 ML IV SCH ×3 (01:01→11:23)
--- NOTE | 2018-08-02 01:30 | NUR ---
PT STABLE NOW, RESTING CALMLY. NO SIGNS OF DISTRESS NOTED AT THIS TIME. PT POSITIONED FOR COMFORT. BED IN LOWEST POSITION, BED ALARM ON. WILL CONTINUE TO MONITOR.
[2018-08-02 04:00] VITALS: BP 116/68
[2018-08-02] MEDS ORDERED: MAG SULF 2000 MG/WATER PREMIX 50 ML IV SCH (04:15)
[2018-08-02] MEDS: PANTOPRAZOLE 40 MG INJ VIAL IVP SCH (05:48)
--- NOTE | 2018-08-02 05:50 | NUR ---
ADMINISTERED SCHEDULED MEDICATIONS, PT TOLERATED WELL.
--- NOTE | 2018-08-02 06:45 | NUR ---
PAGED HAM PUMPER MD AGAIN FOR DIFFERENT TYPE OF INSULIN.
--- NOTE | 2018-08-02 07:15 | NUR ---
WILL GIVE 10 UNITS OF HUMALOG NOW, AND ENDORSE THE REST TO DAY SHIFT HELADIO HAIDER
--- NOTE | 2018-08-02 07:25 | NUR ---
ENDORSED PT TO DAY SHIFT HELADIO RODRIGUEZ FOR CONTINUITY OF CARE. PT IN STABLE CONDITION.
--- NOTE | 2018-08-02 07:26 | NUR ---
RECEIVED REPORT FROM ONLINE PROJECT MANAGER NURSE. PATIENT LYING DOWN IN BED SLEEPING, AROUSABLE BY VOICE. NO DISTRESS NOTED. FAMILY MEMBER AT BEDSIDE. RESPIRATIONS EVEN, UNLABORED, ON O2 3L/MIN VIA OXIMIZER. SKIN INTACT. IV SITE INTACT, PATENT, AND INFUSING IVF PER MD ORDERS. LUNGS WHEEZING UPON EXPIRATION. RIVERA CATHETER IN PLACE, DRAINING DARK NOEL URINE. REVIEWED PLAN OF CARE WITH PATIENT. PATIENT VERBALIZED UNDERSTANDING. SAFETY MEASURES IN PLACE, CALL LIGHT WITHIN REACH. WILL CONTINUE TO MONITOR.
[2018-08-02 07:37] LABS: EOSINOPHILS % (AUTO) 0.1 % (0.0-4.0); HEMATOCRIT 32.3 % (36-52); HEMOGLOBIN 10.5 g/dL (12.0-18.0); LYMPHOCYTES # (AUTO) 0.5 K/uL (2.0-11.5); LYMPHOCYTES % (AUTO) 3.8 % (20.5-51.1); MEAN CORPUSCULAR HEMOGLOBIN 28 pg (27-31); MEAN CORPUSCULAR HGB CONC 32 g/dL (33-37); MEAN CORPUSCULAR VOLUME 85.4 fL (80-94); MONOCYTES # (AUTO) 1.4 K/uL (0.8-1.0); MONOCYTES % (AUTO) 11.1 % (1.7-9.3); NEUTROPHILS # (AUTO) 10.7 K/uL (1.8-7.7); PLATELET COUNT (AUTO) 113 K/uL (140-450); RED BLOOD CELL COUNT(AUTO) 3.79 MIL/uL (4.20-6.10); RED CELL DISTRIBUTION WIDTH 19.5 % (11.6-13.7); WHITE BLOOD COUNT (AUTO) 12.6 K/uL (4.8-10.8)
[2018-08-02 08:00] VITALS: BP 118/72
[2018-08-02 08:09] LABS: ALBUMIN 2.2 g/dL (3.4-5.0); ASPARTATE AMINOTRANSFERASE 29 U/L (15-37); CHLORIDE 111 mmol/L (98-107); CREATININE 0.8 mg/dL (0.7-1.3); GLUCOSE 104 mg/dL (74-106); SODIUM SERUM 147 mmol/L (136-145); TOTAL BILIRUBIN 0.8 mg/dL (0.0-1.0); UREA NITROGEN, BLOOD 17 mg/dL (7-18)
[2018-08-02 08:11] LABS: PROTHROMBIN TIME 12.3 secs (10.8-13.4)
[2018-08-02] MEDS ORDERED: POTASSIUM CHL 40 MEQ/ D5-1/2NS 1,000 ML IV SCH (09:00)
[2018-08-02] MEDS: ENOXAPARIN 40 MG/0.4 ML SYR SUBQ SCH (09:00)
--- NOTE | 2018-08-02 09:00 | NUR ---
ASSISTED AIR SEALING TECHNICIAN IN CLEANING AND REPOSITIONING PATIENT. WILL CONTINUE TO MONITOR.
[2018-08-02] MEDS ORDERED: POTASSIUM CHLORIDE 40 MEQ, LIDOCAINE MPF 1% - 5 mL VIAL 25 MG in NACL 0.9% 250 ML IV SCH (10:00)
--- NOTE | 2018-08-02 10:52 | NUR ---
CM NOTE RECEIVED ORDER TO CONTINUE ON [facility] ON DISCHARGE. FAXED ORDER TO [facility] [phone]. SPOKE WITH PATIENT'S DAUGHTER JESSICA PH# [phone] WHO SAID THAT THE FAMILY IS AWARE OF THE ORDER FOR HOME WITH HOSPICE AND THE FAMILY IS AGREEABLE AND WANTS TO CONTINUE WITH [facility]. PER CM CONSTANTINE OF [facility] (COVERING FOR CM JELENA) PH# [phone], PATIENT WAS PREVIOUSLY WITH [facility] AND TO GO AHEAD AND LET [facility] KNOW. SPOKE WITH MITALI OF [facility] PH# [phone] TO INFORM HER OF THE ORDER TO CONTINUE WITH HOSPICE AND OF DISCHARGE TODAY. PER MITALI, SHE WILL SEND SOMEONE TO EVALUATE THE PATIENT AT THE HOSPITAL TODAY. CHARGE NURSE YAHAIRA FLORENCE.
--- NOTE | 2018-08-02 11:27 | NUR ---
PATIENT LYING DOWN IN BED SLEEPING, AROUSABLE BY VOICE. DAUGHTER AT BEDSIDE. NO DISTRESS NOTED. SCHEDULED MEDICATIONS DUE GIVEN. WILL CONTINUE TO MONITOR.
[2018-08-02 12:00] VITALS: BP 124/73
--- NOTE | 2018-08-02 14:35 | NUR ---
CM NOTE SORAYA GABRIEL FROM [facility] # [phone] CAME TO EVALUATE THE PATIENT AND SPEAK WITH ONE OF THE PATIENT'S DAUGHTERS BEDSIDE. PER SORAYA, THE PATIENT IS COMING ON TO [facility] TODAY AND HE WILL SET UP THE TRANSPORTATION TO GO HOME TODAY. I GAVE SORAYA THE NUMBER TO THE NURSING STATION TO CONFIRM WITH THE NURSE THE STRUCTURAL STEEL WORKER TIME. CHARGE NURSE YAHAIRA FLORENCE.
--- NOTE | 2018-08-02 15:00 | NUR ---
DISCHARGE INSTRUCTIONS AND MEDICATION RECONCILIATION PROVIDED TO HOSPICE SURGICAL NURSE ON BEDSIDE UNIT. PATIENT/FAMILY VERBALIZED UNDERSTANDING. WILL CONTINUE TO MONITOR.
[2018-08-02 16:00] VITALS: BP 132/74
--- NOTE | 2018-08-02 18:00 | NUR ---
DISCHARGE INSTRUCTIONS PROVIDED TO PATIENT/FAMILY AT BEDSIDE IN PREFERRED LANGUAGE OF [place]. PATIENT PREFERS DAUGHTER AT BEDSIDE TO TRANSLATE INSTEAD OF USING [employer]ER PHONE. ANSWERED ALL OF PATIENT/FAMILY QUESTIONS REGARDING D/C TO HOME WITH [facility]. AWAITING FOR TRANSPORT BY HOSPICE COMPANY TO ARRIVE AT 1800 TO TAKE PATIENT HOME. WILL CONTINUE TO MONITOR.
--- NOTE | 2018-08-02 19:40 | NUR ---
GAVE REPORT TO VACUUM SPINDLE SANDER NURSE FOR CONTINUITY OF CARE. PATIENT IN STABLE CONDITION.
--- NOTE | 2018-08-02 19:53 | NUR ---
RECEIVED REPORT FROM MICHAEL LEIJA DAYSHIFT NURSE AT BEDSIDE FOR CONTINUITY OF CARE,PT IN STABLE CONDITION. PT READY FOR DISCHARGE, DAUGHTER AT BEDSIDE.
--- NOTE | 2018-08-02 20:39 | NUR ---
GAVE REPORT TO ELVIRA LEIJA SENIOR UI UX DESIGNER NURSE FOR CHANGE OF ASSIGNMENT.
[2018-08-02] MEDS: HALOPERIDOL IM 5 MG/ML VIAL IM PRN (21:00)
--- NOTE | 2018-08-02 21:05 | NUR ---
PATIENT PICK-UP BY [facility] ACCOMPANIED BY DAUGHTER. REMOVED IV ACCESS. PERSONAL BELONGINGS WITH DAUGHTER. DISCHARGES INSTRUCTION GIVEN. PATIENT LEFT IN STABLE CONDITION.
== END 2018-08-02 21:05 | disposition hospice, home (50) | DRG 871 ==
LOC: MED 15:37 → MIC 18:25 → MTU 07-30 17:50
PROVIDERS: ADMIT Hospitalist; ATTEND Hospitalist
PROC: 5A09357 Assistance with Respiratory Ventilation, Less than 24 Consecutive Hours, Continuous Positive Airway Pressure (ICD-10-PCS; 2018-07-28)
PROC: 30233N1 Transfusion of Nonautologous Red Blood Cells into Peripheral Vein, Percutaneous Approach (ICD-10-PCS; principal; 2018-07-31)
DX: A41.9 Sepsis, unspecified organism (principal); J69.0 Pneumonitis due to inhalation of food and vomit; R65.21 Severe sepsis with septic shock; G93.41 Metabolic encephalopathy; J96.21 Acute and chronic respiratory failure with hypoxia; J15.9 Unspecified bacterial pneumonia; J44.0 Chronic obstructive pulmonary disease with (acute) lower respiratory infection; E83.42 Hypomagnesemia; I10 Essential (primary) hypertension; F41.9 Anxiety disorder, unspecified; E83.51 Hypocalcemia; R73.9 Hyperglycemia, unspecified; H35.30 Unspecified macular degeneration; Z88.1 Allergy status to other antibiotic agents; Z88.0 Allergy status to penicillin; Z88.2 Allergy status to sulfonamides; Z87.891 Personal history of nicotine dependence; Z99.81 Dependence on supplemental oxygen
CPT/HCPCS: 36415; 36600; 51702; 71045; 80048; 80053; 81001; 82009; 82140; 82150; 82272; 82550; 82553; 82803; 83605; 83690; 83735; 83880; 84436; 84443; 84484; 85025; 85379; 85610; 85730; 86870; 86886; 86900; 86901; 86920; 87040; 87081; 87086; 87804; 89220; 92610; 93005; 94640; 94660; 96361; 96374; 96375; 96376; 97116; 97530; 99291; C9113; G0482; J0153; J0456; J0696; J1200; J1630; J1650; J1940; J1956; J2001; J2060; J2270; J2543; J2920; J2930; J3475; J3480; J3490; J7030; J7042; J7060; J7608; J7613; P9016; Q0092